=== PATIENT | female | born 1985 | race Asian ===

== ENCOUNTER 2017-07-09 09:15 | Inpatient (IN) | payer SELFPAY ==
[~2017-07-09] VITALS: Ht 167 cm; Wt 63.0 kg
[2017-07-09] MEDS ORDERED: LACTATED RINGERS 1,000 ML IV SCH (09:44)
[2017-07-09] MEDS ORDERED: PREN-380 PO (09:44)
[2017-07-09] MEDS ORDERED: METHYLERGONOVINE 0.2 MG/ML AMP IM PRN ×2 (09:45→12:40)
[2017-07-09] MEDS ORDERED: AMPICILLIN 2,000 MG in NACL 0.9% MINI-BAG PLUS 100 ML IV SCH (09:45)
[2017-07-09] MEDS ORDERED: CARBOPROST 250 MCG/ML AMP IM PRN (09:45)
[2017-07-09] MEDS ORDERED: NALBUPHINE HYDROCHLORIDE 10 MG/ML VIAL IVP PRN (09:45)
[2017-07-09] MEDS ORDERED: OXYTOCIN 10 UNITS/ML VIAL IM SCH (09:45)
[2017-07-09] MEDS ORDERED: PROMETHAZINE 25 MG/ML VIAL IVP PRN (09:45)
[2017-07-09] MEDS ORDERED: OXYTOCIN 20 UNITS/LR PREMIX 1,000 ML IV SCH (10:00)
[2017-07-09 10:10] LABS: BASOPHILS % (AUTO) 0.7 % (0.0-2.0); EOSINOPHILS # (AUTO) 0.1 K/uL (0-0.4); EOSINOPHILS % (AUTO) 1.7 % (0.0-4.0); HEMATOCRIT 30.3 % (36-48); HEMOGLOBIN 9.5 g/dL (12.0-16.0); LYMPHOCYTES # (AUTO) 1.4 K/uL (2.5-16.5); LYMPHOCYTES % (AUTO) 20.4 % (20.5-51.1); MEAN CORPUSCULAR HEMOGLOBIN 25 pg (27-31); MEAN CORPUSCULAR HGB CONC 31 g/dL (33-37); MEAN CORPUSCULAR VOLUME 80 fL (80-94); MONOCYTES # (AUTO) 0.4 K/uL (0.8-1.0); MONOCYTES % (AUTO) 6.3 % (1.7-9.3); NEUTROPHILS # (AUTO) 5.2 K/uL (1.8-7.7); NEUTROPHILS % (AUTO) 70.9 % (42.2-75.2); PLATELET COUNT (AUTO) 252 K/uL (140-450); RED BLOOD CELL COUNT(AUTO) 3.77 MIL/uL (4.20-5.40); RED CELL DISTRIBUTION WIDTH 12.3 % (11.6-13.7); WHITE BLOOD COUNT (AUTO) 7.1 K/uL (4.8-10.8)
[2017-07-09 10:14] VITALS: BP 126/80
[2017-07-09 10:37] LABS: ALBUMIN 2.7 g/dL (3.4-5.0); ANION GAP 12.9 (8-16); CARBON DIOXIDE 23.8 mmol/L (21-32); CREATININE 0.7 mg/dL (0.6-1.3); POTASSIUM 3.7 mmol/L (3.5-5.1); TOTAL BILIRUBIN 0.2 mg/dL (0.0-1.0)
[2017-07-09] MEDS ORDERED: OXYTOCIN 20 UNITS/LR PREMIX 1,000 ML IV ONE (11:15)
[2017-07-09] MEDS ORDERED: OXYTOCIN 10 UNITS/ML VIAL ONE (11:15)
[2017-07-09] MEDS ORDERED: LIDOCAINE 1% 50 ML ONE (11:15)
[2017-07-09 11:28] LABS: APPEARANCE,URINE SL CLOUDY (CLEAR); BILIRUBIN,URINE NEGATIVE (NEGATIVE); COLOR,URINE YELLOW (YELLOW); PH,URINE 6.5 (5.0-9.0); UGLUCOSE NEGATIVE (NEGATIVE)
[2017-07-09 11:51] LABS: NITRITE, URINE 2+ (NEGATIVE)
[2017-07-09 11:52] LABS: LEUKOCYTE ESTERASE ,URINE 3+ (NEGATIVE)
[2017-07-09 11:53] LABS: WBC,URINE >25 (MANY) /HPF (0-5)
[2017-07-09 11:55] LABS: BLOOD, URINE 1+ (NEGATIVE)
[2017-07-09] MEDS ORDERED: AMPICILLIN 1,000 MG in NACL 0.9% MINI-BAG PLUS 50 ML IV SCH (12:00)
[2017-07-09] MEDS ORDERED: HYDROcodone/APAP 5/325 MG 1 TAB TAB PO PRN (12:40)
[2017-07-09] MEDS ORDERED: BENZOCAINE/MENTHOL 20%-0.5% 60 GM CAN TP PRN (12:40)
[2017-07-09] MEDS ORDERED: oxyCODONE/APAP 5/325 MG 1 TAB TAB PO PRN (12:40)
[2017-07-09] MEDS ORDERED: TEMAZEPAM 15 MG CAP PO PRN (12:40)
[2017-07-09] MEDS ORDERED: IBUPROFEN 800 MG TAB PO PRN (12:40)
[2017-07-09] MEDS ORDERED: OXYTOCIN 10 UNITS/ML VIAL IM PRN (12:40)
[2017-07-09] MEDS ORDERED: oxyCODONE/APAP 5/325 MG 1 TAB TAB ONE (16:59)
[2017-07-09] MEDS ORDERED: DOCUSATE SOD/SENNA 50/8.6 MG 1 TAB PO SCH (21:00)
[2017-07-10 06:47] LABS: HEMATOCRIT 25.6 % (36-48); HEMOGLOBIN 8.4 g/dL (12.0-16.0)
[2017-07-10 09:54] LABS: RAPID PLASMA REAGIN NON-REACTIVE (Non Reactiv)
[2017-07-11] MEDS: MEASLES, MUMPS, AND RUBELLA 1 VIAL SQVAC PRN ×2 (05:10→05:36)
--- NOTE | 2017-07-11 07:09 | NUR ---
PATIENT HAS BEEN SCREENED AND CATEGORIZED LOW NUTRITION RISK. PATIENT WILL BE SEEN WITHIN 7 DAYS OF ADMISSION. 07/16/17 FANNIE GERMAIN MS, RDN
[2017-07-11] MEDS ORDERED: IBUP-2213 PO (09:55)
== END 2017-07-11 14:05 | disposition home or self-care (01) | DRG 775 ==
LOC: MLD 09:15 → MFCC 17:30
PROVIDERS: ADMIT Obstetrics & Gynecology; ATTEND Obstetrics & Gynecology
PROC: 10E0XZZ Delivery of Products of Conception, External Approach (ICD-10-PCS; principal; 2017-07-09)
PROC: 0KQM0ZZ Repair Perineum Muscle, Open Approach (ICD-10-PCS; 2017-07-09)
PROC: 3E0234Z Introduction of Serum, Toxoid and Vaccine into Muscle, Percutaneous Approach (ICD-10-PCS; 2017-07-11)
PROC: 3E0234Z Introduction of Serum, Toxoid and Vaccine into Muscle, Percutaneous Approach (ICD-10-PCS; 2017-07-11)
DX: O70.1 Second degree perineal laceration during delivery (principal); Z37.0 Single live birth; Z23 Encounter for immunization; Z3A.37 37 weeks gestation of pregnancy
CPT/HCPCS: 36415; 59409; 80053; 81001; 85018; 85025; 86592; 86886; 86900; 86901; 87086; 90707; 90715; J2001; J2590